=== PATIENT | female | born 1935 | race Caucasian/White ===

== ENCOUNTER 2016-10-31 05:09 | Inpatient (IN) | payer MEDICARE, OTHER ==
--- NOTE | ~2016-10-31 | DS ---
Discharge Summary [facility] [address] [place]. [address] NAME: JOHNNIE SIMMS MILTON : 33 STATUS : DIS IN PAT#: [id number] AGE: 80 ADM/REG DATE : 10/31/16 MR#: [id number] REPORT SERV DATE: 12/16/16 DICTATED BY: JARROD THOMPSON DATE: 12/16/16 REPORT STATUS : Draft TRANSCRIBED BY: MODArely DATE: 12/16/16 ADMISSION DATE: 10/31/2016 DISCHARGE DATE: 11/02/2016 SUMMARY DATE OF HOSPITAL : 11/01/2016 DIAGNOSES: 1. Septic shock. 2. Bowel ischemia. 3. Acute renal failure. 4. Acute respiratory failure. 5. Atrial fibrillation with a rapid ventricular response. 6. Shock liver. SUMMARY: Please see dictated H and P and patient history for full presentation and history. BRIEF SUMMARY: The patient was an 80-year-old white female with a past medical history of chronic atrial fibrillation, diastolic heart failure, and hyperthyroidism, who initially was admitted to the hospital on the with abdominal pain, nausea and vomiting, who was found to have bowel ischemia on her abdominal CT scan here. She initially was intubated, has a central line, was on multiple pressors prior to going to surgery, and she then underwent exploratory laparotomy by surgery on 10/31, please see their surgical note for full details of her operation. Post surgery, over the next 24 hours, she continued to have progressive lactic acidosis, septic shock, renal failure and persistent respiratory failure. Given her high likely mortality rate and her multiple comorbidities and advanced age, the patient's family elected to make her do not resuscitate post her surgery. The patient then on 11/01/2016. DICTATED BY: MD ARLINE Levin/CHANO Jarrod Thompson MD / [id number] CC: MD Chandler Levin M.D.
--- NOTE | ~2016-10-31 | HP ---
History And Physical [place] [id number] [facility] [place]. [address] NAME: JOHNNIE SIMMS MILTON : 33 STATUS : ADM IN [facility]#: [id number] AGE: 80 ADM/REG DATE : 10/31/16 MR#: [id number] REPORT SERV DATE: 10/31/16 DICTATED BY: JARROD THOMPSON DATE: 10/31/16 REPORT STATUS : Draft TRANSCRIBED BY: MODArely DATE: 10/31/16 DATE OF ADMISSION: 10/31/2016 CHIEF COMPLAINT: Septic shock. HISTORY OF PRESENT ILLNESS: The patient is an 80-year-old, white female with a past medical history of chronic atrial fibrillation, hyperthyroidism, and diastolic heart failure who presented to an outside hospital [facility] with complaints of abdominal pain. The patient is intubated at the time of my interview and unable to provide history. Per the outside emergency room record, the patient was awakened by abdominal pain at approximately 0100 hours on the morning of admission. It was acute in onset with nausea, vomiting, and was diffuse in nature. She says that it started in her lower abdominal quadrant with sharp radiation to the rest of her abdomen. She associated this with some nausea and vomiting. This prompted her to come to the emergency room. She denied any fevers, chills, or sweats. She denied any constipation or diarrhea. At the outside emergency room, she was intubated for worsening respiratory failure. At that time, was hypotense, requiring placement of central line and initiation of vasopressors. She also had elevated white count and an abdominal CT scan that showed distal thickened small bowel loops with fluid consistent with enteritis versus small bowel ileus. She also had incidental sigmoid diverticulosis, cholelithiasis, and a moderate hiatal hernia found on that CT scan. She was then transferred here for further management to our service. Also of note at the outside hospital her lactic acid was elevated at 7. PAST MEDICAL HISTORY: 1. Chronic atrial fibrillation. 2. Diastolic heart failure. 3. History of asthma. 4. Hyperthyroidism. 5. Hypertension. 6. History of thyroid goiter. 7. History of cholelithiasis. 8. Hiatal hernia. 9. Sigmoid diverticulosis. 10.History of hip fracture repair. 11.History of bladder suspension. 12.History of hysterectomy. 13.History of thyroid surgery. HOME MEDICATIONS: 1. Calcium 500 one tab twice daily. 2. Coumadin 3 mg p.o. daily. 3. Multivitamin 1 tab daily. 4. Symbicort 2 puffs inhaled twice daily. 5. Vitamin B12 1000 mcg oral daily. 6. Bisoprolol/hydrochlorothiazide 2.5 mg/6.25 mg 1 tab daily. 7. Magnesium oxide 500 mg p.o. daily. History And Physical [address] [place]. [address] NAME: JOHNNIE SIMMS MILTON : 33 STATUS : ADM IN [facility]#: [id number] AGE: 80 ADM/REG DATE : 10/31/16 MR#: [id number] REPORT SERV DATE: 10/31/16 DICTATED BY: JARROD THOMPSON DATE: 10/31/16 REPORT STATUS : Draft TRANSCRIBED BY: CHANO DATE: 10/31/16 8. Methimazole 5 mg p.o. daily. SOCIAL HISTORY: Per the chart, no tobacco, alcohol or IV drug abuse. FAMILY HISTORY: Per the chart. Negative for coronary artery disease. REVIEW OF SYSTEMS: Unable to obtain secondary to sedation and intubation. PHYSICAL EXAMINATION: VITAL SIGNS: Afebrile. Heart rate 148, respiratory rate 16, blood pressure 74/47. GENERAL: Sedated, intubated. HEENT: Pupils equal, round, and reactive to light. Extraocular movements intact. ET tube in place. NECK: Supple. Nontender. No lymphadenopathy. No thyromegaly. No jugular venous distention. LUNGS: Coarse breath sounds bilaterally. CARDIOVASCULAR: Tachycardic. Irregularly irregular. ABDOMEN: Soft, nontender, nondistended. Positive bowel sounds. No hepatosplenomegaly. No rebound or guarding. EXTREMITIES: No cyanosis, clubbing, or edema. NEURO: Sedated. PSYCH: Unable to assess. LABORATORIES AND IMAGING: Imaging pending at the time of dictation here. Outside CT with results as described above. Lactic acid at outside hospital was 7. White blood cell count at outside hospital was 19. Blood gas here shows a pH of 7.34, pCO2 of 32, PO2 of 73. ASSESSMENT AND PLAN: The patient is an 80-year-old, white female with past medical history of atrial fibrillation, diastolic dysfunction, and heart failure who presents with abdominal pain, nausea, and vomiting now with acute respiratory failure, septic shock, and atrial fibrillation with rapid ventricular response. 1. Acute respiratory failure. We will continue ventilator management. We will increase her PEEP here in efforts to attempt to wean her FiO2. Currently, she is ventilating well. We will get a chest x-ray here in followup. We will titrate the rest of her ventilator appropriately. Given her history of asthma, we will place her on bronchodilator protocol. No indication now for an acute asthma exacerbation. So no indication for steroids. I will also get a sputum culture. 2. Septic shock. Most likely etiology is intraabdominal with either small bowel obstruction versus ischemic colitis versus infectious colitis. We will start empiric meropenem given her penicillin allergy. We will get blood cultures x2 as well as procalcitonin. We will get a KUB and get outside abdominal CT scan records. We will also get General Surgery to see the patient here to evaluate for possible small-bowel obstruction versus ischemic colitis. Currently, she is on Levophed and vasopressin. We will titrate these to maintain a MAP greater than 65. 3. Atrial fibrillation with rapid ventricular response. Given her shock, we will start her on IV amiodarone protocol. We will hold her chronic Coumadin therapy for now. History And Physical [address] [place]. [address] NAME: JOHNNIE SIMMS MILTON : 33 STATUS : ADM IN [facility]#: [id number] AGE: 80 ADM/REG DATE : 10/31/16 MR#: [id number] REPORT SERV DATE: 10/31/16 DICTATED BY: JARROD THOMPSON DATE: 10/31/16 REPORT STATUS : Draft TRANSCRIBED BY: CHANO DATE: 10/31/16 4. Oliguric renal failure. The patient's creatinine was okay at the outside hospital but she has made very little urine over the past several hours likely ATN secondary to her shock. We will get Renal to see the patient today. We will monitor urine output and electrolytes closely. We will maintain a MAP greater than 65 and provide some additional IV fluid resuscitation. 5. The patient will be on heparin for deep vein thrombosis prophylaxis. She will be on Protonix for gastrointestinal prophylaxis. 6. The patient is full code. 7. Total critical care time spent on this patient was 50 minutes. ARLINE/CHANO Jarrod Thompson MD / [id number] CC: MD Chandler Levin M.D.
--- NOTE | ~2016-10-31 | CN ---
Consultation Report [facility] [address] [place]. [address] NAME: JOHNNIE SIMMS MILTON : 33 STATUS : ADM IN [facility]#: [id number] AGE: 80 ADM/REG DATE : 10/31/16 MR#: [id number] REPORT SERV DATE: 10/31/16 DICTATED BY: PATT ELIZABETH DATE: 10/31/16 REPORT STATUS : Draft TRANSCRIBED BY: MODArely DATE: 10/31/16 NEPHROLOGY CONSULTATION DATE OF CONSULTATION: 10/31/2016 INDICATION FOR CONSULTATION: Acute kidney injury with anuria. HISTORY OF PRESENT ILLNESS: The patient is an 80-year-old female, who was transferred from [facility] with abdominal pain and septic shock. Her creatinine has risen from 0.9 when checked in the emergency room at [facility] to a value of 2.61. She has had little or no urine output since arrival to the hospital. She is on pressors with systolic blood pressure in the 70s upon arrival. Home medications include Bystolic, hydrochlorothiazide. She is on Coumadin for chronic atrial fibrillation. She apparently developed acute onset of severe abdominal pain which awakened her from sleep, prompting her emergency room evaluation at [facility]. At present, she is on the ventilator, awake, continuing with abdominal pain, and requiring pressor agents for blood pressure support. Her INR is at 6. Her lactic acid is 7.4. She was febrile on presentation. PAST MEDICAL HISTORY: Chronic atrial fibrillation, diastolic CHF, asthma, hyperthyroidism, thyroid surgery for goiter, hypertension, cholelithiasis, hiatal hernia, and sigmoid diverticulosis. PAST SURGICAL HISTORY: Hip fracture repair, bladder suspension, hysterectomy, and thyroid surgery. HOME MEDICATIONS: Calcium; Coumadin; multivitamin; Symbicort; B12; Ziac; magnesium oxide; and methimazole. SOCIAL HISTORY: No use of alcohol, IV drugs, or tobacco products per chart. I was unable to obtain. FAMILY HISTORY: Negative for coronary disease per chart. Otherwise unable to obtain. REVIEW OF SYSTEMS: Unable to obtain. ALLERGIES: TO SHELLFISH, FLONASE, PENICILLIN, AND SULFA. PHYSICAL EXAMINATION: VITAL SIGNS: Exam on arrival, blood pressure 74/47, pulse 148, respiratory rate 16, and temperature 100.3. GENERAL: Elderly female, awake, on vent, responsive. HEENT: Eyes, no scleral icterus. Pupils equal, reactive to light. Extraocular movement intact. Nares patent. No lesions. Mouth with ET and OG tube in place. Consultation Report [place] [address] [place]. [address] NAME: JOHNNIE SIMMS MILTON : 33 STATUS : ADM IN PAT#: [id number] AGE: 80 ADM/REG DATE : 10/31/16 MR#: [id number] REPORT SERV DATE: 10/31/16 DICTATED BY: PATT ELIZABETH DATE: 10/31/16 REPORT STATUS : Draft TRANSCRIBED BY: MODL DATE: 10/31/16 NECK: No thyromegaly, masses, or bruits. CHEST/LUNGS: Few late crackles laterally. No wheezing. CARDIAC: Irregular tachycardia; 1/6 systolic ejection murmur. No rub. ABDOMEN: Mild distention, quiet, tender. BREASTS: Exam not performed. PELVIC: Exam not performed. RECTAL: Exam not performed. : Indwelling Aguayo. EXTREMITIES: No edema. No calf tenderness. DERMIS: No rash. No skin lesions. NEUROLOGIC: Unable to evaluate. She does move extremities. MUSCULOSKELETAL: No deformity. IMPRESSION: 1. Acute kidney injury secondary to sepsis with shock, likely acute tubular necrosis. 2. Severe sepsis with shock, possible small bowel ischemia. 3. Acute respiratory failure, on vent. 4. Atrial fibrillation with rapid ventricular response. 5. History of diastolic congestive heart failure. 6. Asthma. 7. Cholelithiasis. 8. Hyperthyroidism. 9. Prior thyroid surgery for goiter. 10.Hip surgery for fracture repair. 11.Bladder suspension. 12.Diverticulosis. 13.History of hypertension. PLAN: 1. Labs. 2. Placement of Vas-Cath after coagulopathy corrected. 3. Probable CRRT after surgery. CG/MODL Patt Elizabeth M.D. / [id number] CC: MD Chandler Levin M.D.
--- NOTE | ~2016-10-31 | OP ---
Record Of Operation [facility] [address] [place]. [address] NAME: JOHNNIE SIMMS MILTON : 33 STATUS : ADM IN PAT#: [id number] AGE: 80 ADM/REG DATE : 10/31/16 MR#: [id number] REPORT SERV DATE: 10/31/16 DICTATED BY: DONALD AZUL DATE: 10/31/16 REPORT STATUS : Draft TRANSCRIBED BY: MODL DATE: 10/31/16 DATE OF PROCEDURE: 10/31/2016 PROCEDURE: Femoral A-line insertion on the left. PREOPERATIVE DIAGNOSIS: Septic shock. POSTOPERATIVE DIAGNOSIS: Septic shock. INDICATION FOR PROCEDURE: The patient is currently on maximal pressor support, no pulses are palpated other than the femoral region and need of invasive monitoring. PROCEDURE NOTE: The patient was prepped and draped in standard fashion in the left groin. This was sterilized. Using ultrasound guidance, we were able to identify the femoral artery. We inserted the finder needle after placing lidocaine in the skin. We then got return of arterial blood, we placed a guidewire within the left femoral artery and placed the A-line with sluggish, but pulsatile flow. We sutured this line in place and continued with dressings. OUTCOME: Successful arterial line placement in the left femoral region. HFQ/CHANO Donald Azul MD / [id number] CC: MD Chandler Levin M.D.
--- NOTE | ~2016-10-31 | OP ---
Record Of Operation [facility] [address] [place]. [address] NAME: JOHNNIE SIMMS MILTON : 33 STATUS : DIS IN PAT#: [id number] AGE: 80 ADM/REG DATE : 10/31/16 MR#: [id number] REPORT SERV DATE: 11/03/16 DICTATED BY: RUFUS MORELAND DATE: 10/31/16 REPORT STATUS : Draft TRANSCRIBED BY: MODL DATE: 10/31/16 DATE OF PROCEDURE: 10/31/2016 PREOPERATIVE DIAGNOSES: 1. Septic shock. 2. Small-bowel ischemia. 3. Acute renal failure. POSTOPERATIVE DIAGNOSES: 1. Septic shock. 2. Small-bowel ischemia. 3. Acute renal failure. PROCEDURES: Include: 1. Exploratory laparotomy. 2. Partial small bowel resection of approximately 150 cm, the patient in discontinuity. 3. Right IJ Vas-Cath placement. ATTENDING SURGEON: Dr. Moreland. CHIEF SURGEON: Azeb Pa M.D. ANESTHESIA: General. ESTIMATED BLOOD LOSS: 50 mL. COMPLICATIONS: None. SPECIMEN: 150 cm of small bowel. INDICATION FOR PROCEDURE: Ms. Simms is an 80-year-old female, who presented to our facility as a transfer from [facility] with concern for small bowel ischemia. The patient initially presented to the outside hospital with complaint of abdominal pain, nausea and vomiting. At that point, she clinically deteriorated requiring intubation and use of multiple vasopressor. She was subsequently transferred to [facility]. Over the course of the day, she has been resuscitated. Her coagulopathy has been addressed as well. She presents to the operating room for exploration and Vas-Cath placement for acute renal failure. Risks and benefits of surgery were discussed with the patient's family in detail, and they elected to proceed. DESCRIPTION OF PROCEDURE: The patient was taken to the operating room, placed on the operating table in supine position. After induction of general anesthesia, time-out procedure was performed to ensure proper procedure and patient identification. A vertical midline laparotomy incision was created using a scalpel, deepened through subcutaneous tissues bluntly to the level of the fascia. The fascia was incised using electrocautery to open the extent of the incision. The peritoneum was bluntly entered. Upon entering the Record Of Operation [facility] [address] [place]. [address] NAME: JOHNNIE SIMMS MILTON : 33 STATUS : DIS IN PAT#: [id number] AGE: 80 ADM/REG DATE : 10/31/16 MR#: [id number] REPORT SERV DATE: 11/03/16 DICTATED BY: RUFUS MORELAND DATE: 10/31/16 REPORT STATUS : Draft TRANSCRIBED BY: CHANO DATE: 10/31/16 abdomen, a large volume of blood tinged murky fluid was evacuated. The pneumoperitoneum was opened that extended the incision. It was immediately obvious that the patient had small- bowel ischemia. We began by elevating the transverse colon, identifying the ligament of Treitz. The small bowel was ran distally. The patient was noted to have a single band of omentum which appeared to have strangulated the involved segment of small bowel. This omentum was divided using electrocautery. The small bowel was examined in its entirety, a segment that was found to be nonviable measuring approximately 150 cm was isolated. A window was created in the mesentery on the proximal distal extent. The bowel was divided using a YANNA linear cutting stapler with a tissue load. The mesentery was then divided using the Harmonic device. The small bowel was removed and submitted to pathology. The remainder of the small intestine appeared to be normal. The patient did have approximately 20 cm distal to the point of resection to the ileocecal valve, and approximately 90 cm proximal to the point of resection. The patient was left in discontinuity due to her hemodynamic instability and contamination. The abdomen was irrigated. The fascia was then closed with running #1 looped PDS. Skin was closed with skin lenka and sterile dressing was applied. We then directed our attention to Vas-Cath placement. The patient's right neck was prepped and draped in the usual sterile fashion. Using a finder needle, the right IJ vein was accessed, and a guidewire was passed. An incision was made at the wire insertion site. A dilator was passed over the wire into the vein and removed, Vas-Cath was then threaded over the wire and advanced into place, the guidewire was removed. The Vas-Cath was found to draw and flush well. This was secured to the skin with skin suture, and sterile dressing was applied. The patient tolerated both procedures well, and she was transferred back to the ICU DICTATED BY: Azeb Pa MD JR/MODL Rufus Moreland M.D. / [id number] CC: MD Chandler Levin M.D.
[~2016-10-31 05:09] MED LIST: ACTONEL150 MG PO; ALEVE220 MG PO; CALTRA600D PO; MOTRIN IB200 MG PO; MULTIPLE VIT PO; PCET PO; T PO; TAPAZOLE10 MG OR; VITAMIN D400 UNI1 PO; ZIAC2 PO; [UNRECOGNIZED DRUG - OTHER] PO
[2016-10-31 05:36] LABS: BE (BASE EXCESS) -7.4 MEQ/L (0 +/- 2.5); CARBOXYHEMOGLOBIN 0.4 % (0-3); HCO3 (ACTUAL BICARBONATE) 17.1 MEQ/L (23-27); HEMOBLOGIN CONTENT 13.5 G/DL (12-16); INSTRUMENT SERIAL # 8083; METHEMOGLOBIN 0.2 % (0-3); MODE CMV; O2 CONTENT 17.7 VOL% (18-24); OPERATOR ID 33214; PCO2 (CO2 TENSION) 32 MMHG (35-45); PO2 (O2 TENSION) 73 MMHG (79-93); SAMPLE Arterial; pH 7.34 (7.37-7.43)
[2016-10-31 05:37] LABS: ALLENS TEST Pos; TIDAL VOLUME 450 ML
[2016-10-31 07:26] LABS: HEMATOCRIT 38.8 % (36.0-48.0); MEAN CORPUS HGB CONC 33.5 g/dL (32.0-36.0); MEAN CORPUSCULAR HEMOGLOB 32.9 pg (26.0-34.0); MEAN CORPUSCULAR VOLUME 98.2 fL (80-100); MEAN PLATELET VOLUME 11.1 fL (9.2-13.0); PLATELET COUNT 176 10/3/uL (150-400); RED CELL COUNT 3.95 10/6/uL (4.0-5.6); WHITE BLOOD CELLS 5.6 10/3/uL (4.5-10.5)
[2016-10-31 07:28] LABS: MANUAL DIFF YES %
[2016-10-31 07:31] LABS: PARTIAL THROMBO TIME 49.6 SEC (22.5-37.2)
[2016-10-31 07:32] LABS: INTERNATIONAL NORMAL RATI 5.8 UNITS (-); PROTIME (NOT ORD) 51.8 SEC (12.0-14.5)
[2016-10-31 07:38] LABS: CHLORIDE, SERUM 107 MMOL/L (96-112); PHOSPHORUS, SERUM 2.2 MG/DL (2.5-4.5); POTASSIUM, SERUM 3.8 MMOL/L (3.5-5.3); SGOT(AST) 239 U/L (5-40); SGPT(ALT) 89 U/L (5-65)
[2016-10-31 07:39] LABS: ALBUMIN 2.5 G/DL (3.5-5.0); BUN (BLOOD UREA NITROGEN) 26 MG/DL (6-23); CALCIUM, SERUM 7.3 MG/DL (8.5-10.4); CO2 (CARBON DIOXIDE) 20 MMOL/L (24-34); CREATININE 2.61 MG/DL (0.55-1.02); GFR AFRICAN AMERICAN 19 ML/MIN (>=60); GFR NON AFRICAN AMERICAN 16 ML/MIN (>=60); GLUCOSE, SERUM 128 MG/DL (60-99); SODIUM, SERUM 143 MMOL/L (135-148); TOTAL PROTEIN 4.6 G/DL (6.0-8.5)
[2016-10-31 07:40] LABS: A/G RATIO 1.2 (0.7-1.9); ALKALINE PHOSPHATASE 35 U/L (45-117); GLOBULIN 2.1 G/DL (2.5-4.1); TOTAL BILIRUBIN 1.4 MG/DL (0-1.2)
[2016-10-31 07:59] LABS: BAND NEUTROPHILS 21 %; IMMATURE GRANS ABSOLUTE (CALC) 0.06 10/3/uL (0.0-0.11); LYMPHOCYTES 34 %; METAMYELOCYTES 1 %; MONOCYTES 6 %; MONOCYTES ABSOLUTE (CALC) 0.34 10/3/uL (0.21-1.20); PLATELET ESTIMATE ADQ (ADEQUATE); POLYCHROMASIA 1+ (2-5/OIF) (0-1/OIF); SEGMENTED NEUTROPHIL (0) 38 %; TOTAL NUCLEATED CELLS 100
[2016-10-31 09:18] LABS: BE (BASE EXCESS) -13.9 MEQ/L (0 +/- 2.5); CARBOXYHEMOGLOBIN 0.5 % (0-3); HCO3 (ACTUAL BICARBONATE) 11.6 MEQ/L (23-27); HEMOBLOGIN CONTENT 13.3 G/DL (12-16); INSTRUMENT SERIAL # 8083; METHEMOGLOBIN 0.2 % (0-3); MODE CMV; O2 CONTENT 17.5 VOL% (18-24); PCO2 (CO2 TENSION) 27 MMHG (35-45); PO2 (O2 TENSION) 80 MMHG (79-93); SAMPLE Arterial; TIDAL VOLUME 450 ML; pH 7.25 (7.37-7.43)
[2016-10-31 11:09] LABS: PROCALCITONIN 143.84 ng/mL (<0.5)
[2016-10-31] MEDS ORDERED: JANTOVEN3 MG PO (12:56)
[2016-10-31] MEDS ORDERED: MULTIVIT/MIN PO (12:57)
[2016-10-31] MEDS ORDERED: SYMBICORT 160/41 INH INH (12:57)
[2016-10-31] MEDS ORDERED: TAPAZOLE5 MG PO (12:57)
[2016-10-31] MEDS ORDERED: ZIAC2 PO (12:57)
[2016-10-31] MEDS ORDERED: CALTRA600D PO (12:58)
[2016-10-31] MEDS ORDERED: CYANO1000T PO (12:58)
[2016-10-31] MEDS ORDERED: VITAMIN D31000 UNIT PO (12:58)
[2016-10-31] MEDS ORDERED: OTC PROBIOTIC PO (12:58)
[2016-10-31] MEDS ORDERED: MAG OXIDE250 MG PO (12:59)
[2016-10-31 14:58] LABS: ALLENS TEST Pos; BE (BASE EXCESS) -15.6 MEQ/L (0 +/- 2.5); HCO3 (ACTUAL BICARBONATE) 10.5 MEQ/L (23-27); HEMOBLOGIN CONTENT 11.4 G/DL (12-16); INSTRUMENT SERIAL # 8083; METHEMOGLOBIN 0.2 % (0-3); MODE CMV; O2 CONTENT 15.1 VOL% (18-24); OPERATOR ID 32214; PCO2 (CO2 TENSION) 26 MMHG (35-45); PO2 (O2 TENSION) 80 MMHG (79-93); SAMPLE Arterial; TIDAL VOLUME 450 ML; pH 7.23 (7.37-7.43)
[2016-10-31 15:35] LABS: BASOPHILS 0.4 %; BASOPHILS ABSOLUTE 0.02 10/3/uL (0.0-0.16); EOSINOPHILS 0.2 %; EOSINOPHILS ABSOLUTE 0.01 10/3/uL (0.0-0.53); IMMATURE GRANULOCYTES 0.2 %; IMMATURE GRANULOCYTES ABSOLUTE 0.01 10/3/uL (0.0-0.11); LYMPHOCYTES 31.4 %; LYMPHOCYTES ABSOLUTE 1.72 10/3/uL (0.67-4.30); MEAN CORPUS HGB CONC 33.7 g/dL (32.0-36.0); MEAN CORPUSCULAR HEMOGLOB 33.2 pg (26.0-34.0); MEAN CORPUSCULAR VOLUME 98.5 fL (80-100); MEAN PLATELET VOLUME 11.2 fL (9.2-13.0); MONOCYTES 6.4 %; MONOCYTES ABSOLUTE 0.35 10/3/uL (0.21-1.20); NEUTROPHILS 61.4 %; NEUTROPHILS ABSOLUTE 3.37 10/3/uL (2.02-8.40); PLATELET COUNT 145 10/3/uL (150-400); RBC DISTRIBUTION WIDTH 14.3 % (12.0-16.0); RED CELL COUNT 3.31 10/6/uL (4.0-5.6); WHITE BLOOD CELLS 5.5 10/3/uL (4.5-10.5)
[2016-10-31 15:37] LABS: HEMATOCRIT 32.6 % (36.0-48.0); MANUAL DIFF NO %
[2016-10-31 15:43] LABS: INTERNATIONAL NORMAL RATI 2.8 UNITS (-)
[2016-10-31 15:44] LABS: PARTIAL THROMBO TIME 43.6 SEC (22.5-37.2)
[2016-10-31 15:46] LABS: PROTIME (NOT ORD) 28.9 SEC (12.0-14.5)
[2016-10-31 16:06] LABS: A/G RATIO 1.1 (0.7-1.9); ALBUMIN 2.5 G/DL (3.5-5.0); ALKALINE PHOSPHATASE 49 U/L (45-117); BUN (BLOOD UREA NITROGEN) 30 MG/DL (6-23); CALCIUM, SERUM 7.1 MG/DL (8.5-10.4); CHLORIDE, SERUM 103 MMOL/L (96-112); CO2 (CARBON DIOXIDE) 12 MMOL/L (24-34); CREATININE 2.96 MG/DL (0.55-1.02); GFR AFRICAN AMERICAN 16 ML/MIN (>=60); GFR NON AFRICAN AMERICAN 14 ML/MIN (>=60); GLOBULIN 2.3 G/DL (2.5-4.1); GLUCOSE, SERUM 68 MG/DL (60-99); POTASSIUM, SERUM 5.5 MMOL/L (3.5-5.3); SGOT(AST) 2820 U/L (5-40); SGPT(ALT) 1671 U/L (5-65); SODIUM, SERUM 138 MMOL/L (135-148); TOTAL BILIRUBIN 1.9 MG/DL (0-1.2); TOTAL PROTEIN 4.8 G/DL (6.0-8.5)
[2016-10-31 19:02] LABS: A/G RATIO 1.3 (0.7-1.9); ALBUMIN 2.8 G/DL (3.5-5.0); ALKALINE PHOSPHATASE 51 U/L (45-117); BUN (BLOOD UREA NITROGEN) 30 MG/DL (6-23); CHLORIDE, SERUM 101 MMOL/L (96-112); CREATININE 2.99 MG/DL (0.55-1.02); GFR AFRICAN AMERICAN 16 ML/MIN (>=60); GFR NON AFRICAN AMERICAN 14 ML/MIN (>=60); GLOBULIN 2.2 G/DL (2.5-4.1); GLUCOSE, SERUM 60 MG/DL (60-99); POTASSIUM, SERUM 4.8 MMOL/L (3.5-5.3); SGOT(AST) 4857 U/L (5-40); SGPT(ALT) 2511 U/L (5-65); SODIUM, SERUM 141 MMOL/L (135-148)
[2016-10-31 19:10] LABS: CALCIUM, SERUM 6.8 MG/DL (8.5-10.4); CO2 (CARBON DIOXIDE) 16 MMOL/L (24-34); TOTAL BILIRUBIN 3.1 MG/DL (0-1.2)
[2016-10-31 22:37] LABS: CALCIUM, SERUM 7.2 MG/DL (8.5-10.4); CHLORIDE, SERUM 102 MMOL/L (96-112); CO2 (CARBON DIOXIDE) 15 MMOL/L (24-34); SODIUM, SERUM 140 MMOL/L (135-148)
[2016-10-31 22:38] LABS: BUN (BLOOD UREA NITROGEN) 24 MG/DL (6-23); GFR AFRICAN AMERICAN 21 ML/MIN (>=60); GFR NON AFRICAN AMERICAN 18 ML/MIN (>=60); GLUCOSE, SERUM 36 MG/DL (60-99); PHOSPHORUS, SERUM 5.8 MG/DL (2.5-4.5)
[2016-11-01 03:54] LABS: MEAN CORPUS HGB CONC 32.7 g/dL (32.0-36.0); MEAN CORPUSCULAR HEMOGLOB 33.3 pg (26.0-34.0); MEAN PLATELET VOLUME 10.8 fL (9.2-13.0); RBC DISTRIBUTION WIDTH 14.9 % (12.0-16.0); WHITE BLOOD CELLS 6.1 10/3/uL (4.5-10.5)
[2016-11-01 03:56] LABS: HEMOGLOBIN 8.5 g/dL (12.0-16.0); MANUAL DIFF YES %; PLATELET COUNT 77 10/3/uL (150-400); RED CELL COUNT 2.55 10/6/uL (4.0-5.6)
[2016-11-01 04:16] LABS: ANISOCYTOSIS 1+ (5-10/OIF) (0-5/OIF); BAND NEUTROPHILS 16 %; IMMATURE GRANS ABSOLUTE (CALC) 0.55 10/3/uL (0.0-0.11); LYMPHOCYTES 22 %; LYMPHOCYTES ABSOLUTE (CALC) 1.34 10/3/uL (0.67-4.30); MACROCYTES 1+ (5-10/OIF) (0-5/OIF); METAMYELOCYTES 3 %; MONOCYTES 3 %; MONOCYTES ABSOLUTE (CALC) 0.18 10/3/uL (0.21-1.20); MYELOCYTES 6 %; NEUTROPHILS ABSOLUTE (CALC) 4.03 10/3/uL (2.02-8.40); PLATELET ESTIMATE DEC (ADEQUATE); RBC MORPHOLOGY ABN (NORMAL); SEGMENTED NEUTROPHIL (0) 50 %; TOTAL NUCLEATED CELLS 100
[2016-11-01 04:22] LABS: BE (BASE EXCESS) -18.3 MEQ/L (0 +/- 2.5); CARBOXYHEMOGLOBIN 0.4 % (0-3); HCO3 (ACTUAL BICARBONATE) 9.6 MEQ/L (23-27); HEMOBLOGIN CONTENT 8.8 G/DL (12-16); INSTRUMENT SERIAL # 8083; METHEMOGLOBIN 0.2 % (0-3); MODE CMV; O2 CONTENT 11.1 VOL% (18-24); PCO2 (CO2 TENSION) 30 MMHG (35-45); PO2 (O2 TENSION) 73 MMHG (79-93); SAMPLE Arterial; TIDAL VOLUME 450 ML; pH 7.12 (7.37-7.43)
[2016-11-01 04:26] LABS: A/G RATIO 1.2 (0.7-1.9); ALBUMIN 2.3 G/DL (3.5-5.0); ALKALINE PHOSPHATASE 60 U/L (45-117); CHLORIDE, SERUM 102 MMOL/L (96-112); POTASSIUM, SERUM 4.9 MMOL/L (3.5-5.3); SGOT(AST) 7459 U/L (5-40); SGPT(ALT) 3215 U/L (5-65); SODIUM, SERUM 138 MMOL/L (135-148); TOTAL PROTEIN 4.3 G/DL (6.0-8.5)
[2016-11-01 04:28] LABS: BUN (BLOOD UREA NITROGEN) 12 MG/DL (6-23); CALCIUM, SERUM 6.4 MG/DL (8.5-10.4); CO2 (CARBON DIOXIDE) 10 MMOL/L (24-34); GFR AFRICAN AMERICAN 40 ML/MIN (>=60); GFR NON AFRICAN AMERICAN 35 ML/MIN (>=60); GLUCOSE, SERUM 88 MG/DL (60-99); PHOSPHORUS, SERUM 3.7 MG/DL (2.5-4.5); TOTAL BILIRUBIN 4.2 MG/DL (0-1.2)
[2016-11-01 04:46] LABS: INTERNATIONAL NORMAL RATI 3.5 UNITS (-)
[2016-11-01 04:47] LABS: PROTIME (NOT ORD) 34.7 SEC (12.0-14.5)
[2016-11-01 06:30] LABS: CARBOXYHEMOGLOBIN 0.4 % (0-3); HCO3 (ACTUAL BICARBONATE) 10.4 MEQ/L (23-27); INSTRUMENT SERIAL # 8083; METHEMOGLOBIN 0.5 % (0-3); MODE CMV; PCO2 (CO2 TENSION) 35 MMHG (35-45); PO2 (O2 TENSION) 113 MMHG (79-93); SAMPLE Arterial; TIDAL VOLUME 450 ML; pH 7.09 (7.37-7.43)
[2016-11-01 07:06] LABS: BUN (BLOOD UREA NITROGEN) 15 MG/DL (6-23); CHLORIDE, SERUM 99 MMOL/L (96-112); POTASSIUM, SERUM 5.3 MMOL/L (3.5-5.3); SODIUM, SERUM 140 MMOL/L (135-148)
[2016-11-01 07:08] LABS: CO2 (CARBON DIOXIDE) 10 MMOL/L (24-34); CREATININE 1.95 MG/DL (0.55-1.02); GFR AFRICAN AMERICAN 27 ML/MIN (>=60); GFR NON AFRICAN AMERICAN 23 ML/MIN (>=60); GLUCOSE, SERUM 60 MG/DL (60-99)
[2016-11-01 07:09] LABS: CALCIUM, SERUM 7.9 MG/DL (8.5-10.4); PHOSPHORUS, SERUM 6.4 MG/DL (2.5-4.5)
[2016-11-01 10:47] LABS: BUN (BLOOD UREA NITROGEN) 13 MG/DL (6-23); CHLORIDE, SERUM 98 MMOL/L (96-112); CREATININE 1.65 MG/DL (0.55-1.02); GFR AFRICAN AMERICAN 33 ML/MIN (>=60); GFR NON AFRICAN AMERICAN 29 ML/MIN (>=60); POTASSIUM, SERUM 4.8 MMOL/L (3.5-5.3); SODIUM, SERUM 139 MMOL/L (135-148)
[2016-11-01 10:48] LABS: CO2 (CARBON DIOXIDE) 12 MMOL/L (24-34); GLUCOSE, SERUM 80 MG/DL (60-99); PHOSPHORUS, SERUM 5.4 MG/DL (2.5-4.5)
[2016-11-01 11:53] LABS: BE (BASE EXCESS) -16.3 MEQ/L (0 +/- 2.5); CARBOXYHEMOGLOBIN 0.6 % (0-3); HCO3 (ACTUAL BICARBONATE) 10.8 MEQ/L (23-27); HEMOBLOGIN CONTENT 8.4 G/DL (12-16); INSTRUMENT SERIAL # 8083; METHEMOGLOBIN 0.1 % (0-3); O2 CONTENT 10.9 VOL% (18-24); PCO2 (CO2 TENSION) 30 MMHG (35-45); PO2 (O2 TENSION) 77 MMHG (79-93); SAMPLE Arterial; pH 7.18 (7.37-7.43)
[2016-11-01 12:12] LABS: MEAN CORPUSCULAR HEMOGLOB 33.2 pg (26.0-34.0); MEAN CORPUSCULAR VOLUME 103.7 fL (80-100); MEAN PLATELET VOLUME 10.8 fL (9.2-13.0); PLATELET COUNT 54 10/3/uL (150-400); RBC DISTRIBUTION WIDTH 15.2 % (12.0-16.0); RED CELL COUNT 2.41 10/6/uL (4.0-5.6); WHITE BLOOD CELLS 5.8 10/3/uL (4.5-10.5)
[2016-11-01 12:33] LABS: MACROCYTES 1+ (5-10/OIF) (0-5/OIF); PLATELET ESTIMATE DEC (ADEQUATE)
[2016-11-01 12:47] LABS: A/G RATIO 1.2 (0.7-1.9); ALBUMIN 2.1 G/DL (3.5-5.0); BUN (BLOOD UREA NITROGEN) 12 MG/DL (6-23); CHLORIDE, SERUM 99 MMOL/L (96-112); CREATININE 1.41 MG/DL (0.55-1.02); GFR AFRICAN AMERICAN 40 ML/MIN (>=60); GFR NON AFRICAN AMERICAN 35 ML/MIN (>=60); GLOBULIN 1.8 G/DL (2.5-4.1); SGOT(AST) 15588 U/L (5-40); SGPT(ALT) 6025 U/L (5-65); SODIUM, SERUM 138 MMOL/L (135-148); TOTAL BILIRUBIN 4.5 MG/DL (0-1.2); TOTAL PROTEIN 3.9 G/DL (6.0-8.5)
[2016-11-01 12:48] LABS: ALKALINE PHOSPHATASE 104 U/L (45-117); CO2 (CARBON DIOXIDE) 13 MMOL/L (24-34); GLUCOSE, SERUM 106 MG/DL (60-99)
[2016-11-01 12:49] LABS: CALCIUM, SERUM 6.5 MG/DL (8.5-10.4)
[2016-11-01 13:43] LABS: PROCALCITONIN 48.15 ng/mL (<0.5)
[2016-11-01 17:30] LABS: BUN (BLOOD UREA NITROGEN) 9 MG/DL (6-23); CHLORIDE, SERUM 98 MMOL/L (96-112); CREATININE 1.25 MG/DL (0.55-1.02); GFR AFRICAN AMERICAN 46 ML/MIN (>=60); GFR NON AFRICAN AMERICAN 40 ML/MIN (>=60); GLUCOSE, SERUM 115 MG/DL (60-99); POTASSIUM, SERUM 5.4 MMOL/L (3.5-5.3); SODIUM, SERUM 138 MMOL/L (135-148)
[2016-11-01 17:32] LABS: CO2 (CARBON DIOXIDE) 12 MMOL/L (24-34)
[2016-11-01 17:33] LABS: CALCIUM, SERUM 6.3 MG/DL (8.5-10.4)
[2016-11-01 18:28] LABS: HEMATOCRIT 24.3 % (36.0-48.0); HEMOGLOBIN 7.8 g/dL (12.0-16.0); MEAN CORPUS HGB CONC 32.1 g/dL (32.0-36.0); MEAN CORPUSCULAR HEMOGLOB 33.5 pg (26.0-34.0); MEAN CORPUSCULAR VOLUME 104.3 fL (80-100); MEAN PLATELET VOLUME 10.7 fL (9.2-13.0); RBC DISTRIBUTION WIDTH 15.3 % (12.0-16.0); RED CELL COUNT 2.33 10/6/uL (4.0-5.6); WHITE BLOOD CELLS 7.8 10/3/uL (4.5-10.5)
[2016-11-01 18:30] LABS: DIFFERENTIAL ORDERED Y
[2016-11-01 18:57] LABS: BAND NEUTROPHILS 40 %; IMMATURE GRANS ABSOLUTE (CALC) 0.39 10/3/uL (0.0-0.11); LYMPHOCYTES 33 %; LYMPHOCYTES ABSOLUTE (CALC) 2.57 10/3/uL (0.67-4.30); METAMYELOCYTES 5 %; MONOCYTES 1 %; MONOCYTES ABSOLUTE (CALC) 0.08 10/3/uL (0.21-1.20); NEUTROPHILS ABSOLUTE (CALC) 4.76 10/3/uL (2.02-8.40); NUCLEATED RED BLOOD CELLS 3 /100WBC (0); SEGMENTED NEUTROPHIL (0) 21 %; TOTAL NUCLEATED CELLS 100; TOXIC GRANULATION 2+
[2016-11-01 18:58] LABS: VACUOLATED NEUTROPHILES MOD
[2016-11-01 18:59] LABS: BURR CELLS 1+ (3-10/OIF) (0-2/OIF); PLATELET ESTIMATE DEC (ADEQUATE)
[2016-11-01 19:00] LABS: POIKILOCYTOSIS 1+ (5-10/OIF) (0-5/OIF)
[2016-11-01 19:08] LABS: PLATELET COUNT 48 10/3/uL (150-400)
== END 2016-11-02 00:08 | disposition expired | DRG 853 ==
LOC: MIC 05:09
PROVIDERS: Internal Medicine; Internal Medicine Critical Care Medicine; Internal Medicine Nephrology; Specialist
DX: A41.9 Sepsis, unspecified organism (principal); N17.0 Acute kidney failure with tubular necrosis; J96.01 Acute respiratory failure with hypoxia; R65.21 Severe sepsis with septic shock; I50.32 Chronic diastolic (congestive) heart failure; E87.2 Acidosis; I11.0 Hypertensive heart disease with heart failure; D69.6 Thrombocytopenia, unspecified; K55.019 Acute (reversible) ischemia of small intestine, extent unspecified; I50.22 Chronic systolic (congestive) heart failure; I48.2 Chronic atrial fibrillation; E21.3 Hyperparathyroidism, unspecified; J45.909 Unspecified asthma, uncomplicated; K44.9 Diaphragmatic hernia without obstruction or gangrene; Z90.710 Acquired absence of both cervix and uterus; Z98.890 Other specified postprocedural states; Z90.49 Acquired absence of other specified parts of digestive tract; Z79.01 Long term (current) use of anticoagulants; Z79.899 Other long term (current) drug therapy; Z88.0 Allergy status to penicillin; Z88.2 Allergy status to sulfonamides; Z91.013 Allergy to seafood; Z91.041 Radiographic dye allergy status; D64.9 Anemia, unspecified
CPT/HCPCS: 31720; 36415; 36569; 36600; 71010; 74000; 80048; 80053; 80069; 81001; 82330; 82533; 82803; 82805; 82947; 82962; 83605; 83735; 83880; 84100; 84132; 84145; 84295; 85007; 85014; 85025; 85027; 85610; 85730; 86850; 86900; 86901; 86920; 87040; 87070; 87205; 87641; 88307; 93005; 94002; 94003; 94640; A9270-GY; C1750; C1751; C9113; J0282; J0461; J0610; J0692; J1720; J2250; J2370; J3010; J3411; J3430; P9045; P9059